=== PATIENT | male | born 1985 | race African-American/Black ===

== ENCOUNTER 2018-10-01 04:48 | Emergency (ER) | payer SELFPAY ==
[~2018-10-01] VITALS: Ht 170.2 cm; Wt 79.4 kg
[2018-10-01 05:02] VITALS: BP 139/92
== END 2018-10-01 05:11 | disposition left against medical advice (07) ==
LOC: ER 04:48
DX: S01.511A Laceration without foreign body of lip, initial encounter (principal); Z53.21 Procedure and treatment not carried out due to patient leaving prior to being seen by health care provider; W51.XXXA Accidental striking against or bumped into by another person, initial encounter; Y93.89 Activity, other specified; Y99.8 Other external cause status; Y92.89 Other specified places as the place of occurrence of the external cause

== ENCOUNTER 2018-10-01 06:34 | Emergency (ER) | payer SELFPAY ==
[~2018-10-01] VITALS: Ht 170.2 cm; Wt 74.8 kg
[2018-10-01 07:31] VITALS: BP 123/84
[2018-10-01] MEDS ORDERED: BACITRACIN TOP OINT 1 UD PKG TOP ONE (08:15)
[2018-10-01] MEDS ORDERED: LIDOCAINE 1% (LOCAL ANESTH.) PF 5ml SDV ID ONE (08:15)
[2018-10-01] MEDS ORDERED: TETANUS-DIPTH-ACEL PERTUSSIS 0.5ML SYRG IM ONE (08:30)
== END 2018-10-01 08:46 | disposition home or self-care (01) ==
LOC: ER 06:34
DX: S01.511A Laceration without foreign body of lip, initial encounter (principal); Y08.89XA Assault by other specified means, initial encounter; Y93.89 Activity, other specified; Y92.89 Other specified places as the place of occurrence of the external cause; Y99.8 Other external cause status
CPT/HCPCS: 12011; 90471; 90715